=== PATIENT | male | born 2000 | race Caucasian/White ===

== ENCOUNTER 2018-09-05 13:54 | Emergency (ER) | payer OTHER ==
[2018-09-05 14:06] VITALS: BP 134/88; TEMP 100.5; BMI 19.4
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
[2018-09-05] MEDS: KEFLEX PO STA (15:31)
[2018-09-05] MEDS: NORCO 7.5-325 PO STA (15:31)
== END 2018-09-05 15:47 | disposition home or self-care (01) ==
LOC: ED 13:54
DX: S02.81XA Fracture of other specified skull and facial bones, right side, initial encounter for closed fracture (principal); T07.XXXA Unspecified multiple injuries, initial encounter; Y04.8XXA Assault by other bodily force, initial encounter; F17.210 Nicotine dependence, cigarettes, uncomplicated
CPT/HCPCS: 80306; 81001; 99283

== ENCOUNTER 2018-09-06 12:01 | Emergency (ER) ==
[2018-09-06 12:09] VITALS: BP 118/76; TEMP 97.4; BMI 18.3
[2018-09-06] MEDS: DILAUDID 0.5 MG/0.5 ML SYRINGE IM STA (13:02)
[2018-09-06] MEDS: ZOFRAN 4 MG/2 ML IM STA (13:05)
[2018-09-06] MEDS ORDERED: TETRACAINE 0.5% OPTH SOL OP STA (13:12)
[2018-09-06] MEDS: TETRACAINE 0.5% UNIT-DOSE OP STA (13:20)
[2018-09-06] MEDS: EYE-STREAM OP STA (13:20)
[2018-09-06] MEDS: FUL-GLO OP STA (13:21)
--- NOTE | 2018-09-06 13:21 | ED.PDOC ---
General ED Provider: Dr. TEN JONES Chief Complaint: Eye Problem Stated Complaint: orbital blow out type fracture no new injury presents for pain stated pain med is not covering his pain Time Seen by Physician: 12:00 Mode of Arrival: Walk-In Information Source: Patient Exam Limitations: No limitations Primary Care Provider: WALDEMAR SOUTH Nursing and Triage Documentation Reviewed and Agree: Yes Does patient meet sepsis criteria?: No System Inflammatory Response Syndrome: Not Applicable Sepsis Protocol: For patient's 13 years and over: Temp is 96.8 and below OR 101 and greater Pulse >90 BPM Resp >20/minute Acutely Altered Mental Status Are patient's symptoms suggestive of a new infection, such as: -Pneumonia -Skin, Soft Tissue -Endocarditis -UTI -Bone, Joint Infection -Implantable Device -Acute Abdominal Infection -Wound Infection -Meningitis -Blood Stream Catheter Infection -Unknown Trauma/Injury Complaint Exam - Trauma Complaint/Exam Location of Pain or Injury: Reports: Head, Face (right orbit) Onset/Duration: 1 day Symptoms Are: Still present Timing of Treatment: Immediate Initial Severity: Moderate Current Severity: Moderate Character: Reports: Aching Aggravating: Reports: Movement (of the eye denied diplopia ) Alleviating: Reports: None Associated Signs and Symptoms: Denies: LOC, Confusion, Memory loss, Lethargy, Vomiting, Bleeding, Bruising, Swelling, Extremity disuse, Painful respiration, Hoarseness, Dysphagia, Hemoptysis, Significant blood loss Related History: Reports: Similar episode Penetrating Injury Risk Factors: Reports: None Related Surgical History: Reports: None Nexus Low Risk Criteria: No post-midline CS tender, No evidence of intoxicat., No Altered LOC, No focal neuro deficit, No distracting injuries Glascow Coma Scale (see protocol): 15 Trauma Findings: Absent: Hemotympanum, Nasal deformity, Dental tenderness, Dental malocclusion, Neck tenderness, Neck spasm, SubQ Air, Airway obstructed, Trachea displaced, Labored respirations, Decreased breath sounds, Muffled heart sounds, Weak pulses, Absent pulses, Abdominal distention, Pelvic tenderness, Pelvic instability Skin Findings: Present: Contusion (right orbit) Differential Diagnoses: Contusions Review of Systems - Review Of Systems Constitutional: Reports: No symptoms Eyes: Reports: Pain (right orbit) Ears, Nose, Mouth, Throat: Reports: No symptoms Respiratory: Reports: No symptoms Cardiac: Reports: No symptoms GI: Reports: No symptoms : Reports: No symptoms Musculoskeletal: Reports: No symptoms Skin: Reports: No symptoms Neurological: Reports: No symptoms Endocrine: Reports: No symptoms Hematologic/Lymphatic: Reports: No symptoms All Other Systems: Reviewed and Negative Past Medical History - Past Medical History Previously Healthy: Yes Endocrine: Reports: None Cardiovascular: Reports: None Respiratory: Reports: None Hematological: Reports: None Gastrointestinal: Reports: None Genitourinary: Reports: None Neuro/Psych: Reports: None Musculoskeletal: Reports: Back Pain, Joint Pain Cancer: Reports: None - Surgical History General Surgical History: Reports: Unknown - Family History Family History: Reports: Unknown - Social History Smoking Status: Current every day smoker Hx Substance Use: No Alcohol Screening: None - Immunizations Tetanus Shot up to Date: Yes Physical Exam - Physical Exam Appearance: Well-appearing, No pain distress, Well-nourished Eyes: RAKESH, EOMI (except unable to do upward gaze, corneal abrasion center see photo) ENT: Ears normal, Nose normal, Oropharynx normal Respiratory: Airway patent, Breath sounds clear, Breath sounds equal, Respirations nonlabored Cardiovascular: RRR, Pulses normal, No rub, No murmur GI/: Soft, Nontender, No masses, Bowel sounds normal, No Organomegaly Musculoskeletal: Normal strength, ROM intact, No edema, No calf tenderness Skin: Warm, Dry, Normal color Neurological: Sensation intact, Motor intact, Reflexes intact, Cranial nerves intact, Alert, Oriented Psychiatric: Affect appropriate, Mood appropriate Procedures - Eye Procedure Location of Foreign Body: no f/b Tetracaine Drops Administered: Yes (2 drops) Foreign Body Completely Removed: No (no f/b noted ) Eye Irrigated: Yes ( abrasion central 2 mm) Physician Notification - Case Discussed Physician Notified: byron Time of Notification: 12:12 (stated he would like to wait 3 to 4 days pt should call office ) Critical Care Note - Critical Care Note Total Time (mins): 0 Course - Course Orders, Labs, Meds: Orders Category Date Time Status Balanced Salt Solution [Eye-Stream] MEDS 09/06/18 13:12 Stat 1 bottle OP ONCE STA Fluorescein Sodium [Ful-Veronika] MEDS 09/06/18 13:11 Stat 1 strip OP ONCE STA Hydromorphone HCl [Dilaudid 0.5 mg/0.5 ml Syringe] MEDS 09/06/18 12:48 Discontinued 0.5 mg IM ONCE STA Ofloxacin 0.3% Opth Sierra [Ocuflox 0.3% Opth Sierra] MEDS 09/06/18 13:35 Stat 1 drop OP ONCE STA Ondansetron HCl/Pf [Zofran 4 mg/2 ml] MEDS 09/06/18 12:49 Discontinued 4 mg IM ONCE STA Tetracaine HCl/Pf [Tetracaine 0.5% Unit-Dose] MEDS 09/06/18 13:14 Discontinued 2 drop OP ONCE STA Medications Discontinued Medications Generic Name Dose Route Start Last Admin Trade Name Freq PRN Reason Stop Dose Admin Eye Irrigation Solution 1 bottle 09/06/18 13:12 09/06/18 13:20 Eye-Stream OP 09/06/18 13:13 1 bottle ONCE STA Administration Fluorescein Sodium 1 strip 09/06/18 13:11 09/06/18 13:21 Ful-Veronika OP 09/06/18 13:12 1 strip ONCE STA Administration Hydromorphone HCl 0.5 mg 09/06/18 12:48 09/06/18 13:02 Dilaudid 0.5 Mg/0.5 Ml Syringe IM 09/06/18 12:49 0.5 mg ONCE STA Administration Ofloxacin 1 drop 09/06/18 13:35 Ocuflox 0.3% Opth [place] OP 09/06/18 13:36 ONCE STA Ondansetron HCl 4 mg 09/06/18 12:49 09/06/18 13:05 Zofran 4 Mg/2 Ml IM 09/06/18 12:50 4 mg ONCE STA Administration Tetracaine HCl 2 drop 09/06/18 13:14 09/06/18 13:20 Tetracaine 0.5% Unit-Dose OP 09/06/18 13:15 Not Given ONCE STA Vital Signs: Temp Pulse Resp BP Pulse Ox 09/06/18 12:05 97.4 F L 56 L 16 118/76 97 Departure - Departure Time of Disposition: 13:40 Disposition: HOME SELF-CARE Discharge Problem: Orbital fracture Qualifiers: Encounter type: initial encounter Corneal abrasion Qualifiers: Encounter type: initial encounter Laterality: right Qualified Code(s): S05.01XA - Injury of conjunctiva and corneal abrasion without foreign body, right eye, initial encounter Instructions: Facial Fracture (ED) Condition: Good Pt referred to PMD for follow-up: Yes IPMP verified?: No Additional Instructions: Please call your Family Physician as soon as possible to schedule a follow-up appointment. Do not blow out your nose or any other forceful actions. Call Dr. Laughlin for an appointment at [phone]. Allergies/Adverse Reactions: Allergies No Known Allergies Allergy (Verified 09/06/18 12:11) Home Medications: Ambulatory Orders Hydrocodone Bit/Acetaminophen [[address] 7.5-325] 7.5 mg PO Q4-6H PRN 09/06/18
[2018-09-06] MEDS: OCUFLOX 0.3% OPTH SOL OP STA (13:54)
[2018-09-06] MEDS: TORADOL IM STA (13:54)
== END 2018-09-06 14:16 | disposition home or self-care (01) ==
LOC: ED 12:01
DX: S05.01XA Injury of conjunctiva and corneal abrasion without foreign body, right eye, initial encounter (principal); F17.210 Nicotine dependence, cigarettes, uncomplicated
CPT/HCPCS: 96372; 99283